=== PATIENT | female | born 1990 | race Caucasian/White ===

== ENCOUNTER 2022-10-07 20:31 | Emergency (ER) | payer BC, SELFPAY ==
[2022-10-07 20:37] VITALS: BP 140/90; PULSE 86; RESP 18; TEMP 36.7; O2SAT 99; BMI 27.5
--- NOTE | 2022-10-07 20:55 | ED_ITS ---
HPI - General Adult General Chief complaint: Chest Pain Stated complaint: Chest Pain, shortness of breath, right arm pain Time Seen by Provider: 10/07/22 20:46 History of Present Illness HPI narrative: This 32-year-old female comes in reporting some right upper arm discomfort over the past week her so. She now has some discomfort in the lateral aspect of her right chest. This is reproduced by taking a deep breath. She does not report any nausea, vomiting, lightheadedness, shortness of breath, or diaphoresis. She does feel a little bit of neck stiffness. She does not report any injury event or strenuous activity to bring on symptoms. 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 Related Data Previous Rx's Medication Instructions Recorded methylprednisolone 4 mg tablets in See Rx Instructions PO .COMPLEX 10/07/22 a dose pack (Medrol (Radhames)) #21 ea Allergies Allergy/AdvReac Type Severity Reaction Status Date / Time No Known Drug Allergies Allergy Verified 10/07/22 20:39 Review of Systems Status of ROS: Reports: 10 or more systems reviewed and unremarkable except as noted in History and below Narrative: Constitutional: No fevers, no weight gain or loss. Eyes: No discharge. No vision changes. HENT: No congestion, no sore throat, no ear pain. Cardiovascular: No palpitations. Chest: Discomfort on the axillary region and inferiorly along the chest wall. This pain is reproducible when taking a deep breath. Respiratory: No shortness of breath, no wheezes, no cough. Gastrointestinal: No abdominal pain, no vomiting, no diarrhea. Genitourinary: No dysuria, no hematuria. Musculoskeletal: Normal range of motion. Skin: No rashes, no pruritis. Neurological: No dizziness, weakness, sensory change, speech change. Endo/Heme/Allergies: No bruising or bleeding. No polydipsia. Pysch: no suicidality, no anxiety, no insomnia. All other systems reviewed and are negative. Exam Narrative: Exam Narrative: Constitutional: Well-developed, well-nourished, no acute distress. HEENT: Normocephalic, atraumatic. Neck: Normal range of motion. Nontender. Supple. Heart: Regular. No murmurs. Normal rate. Intact distal pulses. Lungs: Clear to auscultation. No wheezes, rhonchi, or rales. Chest: Reproducible Discomfort in the lateral aspect of the chest on the right side. Some reproducible discomfort in the upper anterior right chest wall. Abdomen: Normal bowel sounds. Nontender. No rebound tenderness. Genitalia: Deferred. Back: No midline tenderness. Normal range of motion. Extremities: Normal range of motion. No injury. Skin: Intact. No rash. Warm. No erythema or pallor. Neurologic: No altered sensation. No weakness. Alert and oriented. Spurling's test is mildly positive when extending her head and rotating to the right she does have some discomfort and twinges extending down her foot right forearm. Psychiatric: No suicidality. No anxiety or depression. No insomnia. Nursing notes and vitals signs are reviewed. Const: Vital Signs, click to edit/add: Vital Signs - 24 hr 10/07/22 20:37 Temperature 98.1 F Pulse Rate [Right Pulse Oximeter] 86 Respiratory Rate 18 Blood Pressure [Ri ght Upper Arm] 140/90 H Pulse Oximetry 99 Oxygen Delivery Me thod Room Air Course Vital Signs Vital signs: Initial Vital Signs Temperature 98.1 F 10/07/22 20:37 Temperature Source Temporal Artery Scan 10/07/22 20:37 Pulse Rate 86 10/07/22 20:37 Respiratory Rate 18 10/07/22 20:37 Blood Pressure 140/90 H 10/07/22 20:37 Blood Pressure Mean 106 10/07/22 20:37 Blood Pressure Position Sitting 10/07/22 20:37 Pulse Oximetry 99 10/07/22 20:37 Oxygen Delivery Method 10/07/22 20:37 Vital Signs Temperature 98.1 F 10/07/22 20:37 Pulse Rate 86 10/07/22 20:37 Respiratory Rate 18 10/07/22 20:37 Blood Pressure 140/90 H 10/07/22 20:37 Pulse Oximetry 99 10/07/22 20:37 Oxygen Delivery Method 10/07/22 20:37 Temperature 98.1 F 10/07/22 20:37 Pulse Rate 86 10/07/22 20:37 Respiratory Rate 18 10/07/22 20:37 Blood Pressure 140/90 H 10/07/22 20:37 Pulse Oximetry 99 10/07/22 20:37 Oxygen Delivery Method 10/07/22 20:37 Medical Decision Making MDM Narrative Medical decision making narrative: This patient comes in with symptoms as described above. These are reproducible symptoms when taking a deep breath or when doing certain maneuvers. EKG shows normal sinus rhythm. She is not showing any signs or symptoms suspicious for a intrathoracic cause. Her reproducible symptoms are suggestive of chest wall pain. She may also have some nerve impingement with symptoms radiating down her right arm at times. She is okay to be discharged home. She did receive a prescription for Toradol and Medrol Dosepak. ECG Data Attestation: I personally reviewed and interpreted this ECG as follows: Interpretation: Normal sinus rhythm. Rate is 73 beats per minute. There are no ST or T-wave abnormalities. Discharge Plan Discharge Clinical Impression: Acute chest wall pain Patient Disposition: Home, Self-Care Condition: Stable Additional Instructions: Take medication as prescribed and needed. Activity as tolerated. Follow up with MD or return if worsening. Prescriptions: New methylprednisolone [Medrol (Radhames)] 4 mg tablets,dose pack See Rx Instructions .ROUTE .COMPLEX Qty: 21 0RF Rx Instructions: orally per package directions Stand Alone Forms: [employer] Info Instructions
[2022-10-07 21:24] LABS: PCR FLU A Negative PCR FLU A (Negative); PCR FLU B Negative PCR FLU B (Negative); PCR RSV Negative PCR RSV (Negative)
[2022-10-07 21:32] LABS: SARS PCR* POSITIVE SARS-CoV-2 (Negative)
== END 2022-10-07 21:16 | disposition home or self-care (01) ==
LOC: ED 21:08
PROVIDERS: Emergency Provider Emergency Medicine Emergency Medical Services
DX: R07.89 Other chest pain (principal)
CPT/HCPCS: 87502; 87634; 87635; 93005; 99284

== ENCOUNTER 2024-06-21 07:11 | Outpatient (CLI) | payer OTHER, BC, SELFPAY ==
--- NOTE | 2024-06-21 07:15 | CRLHL7_ITS ---
For Patients: As a result of the Cures Act, medical imaging exams and procedure reports are released immediately into your electronic medical record. You may view this report before your referring provider. If you have questions, please contact your health care provider. INDICATION: First trimester scan, establish dates. COMPARISON: None. TECHNIQUE: Real-time ayala-scale imaging of the pelvis was performed. FINDINGS: Sonographic imaging demonstrates a single living intrauterine gestation. The embryo demonstrates a regular cardiac rate measuring 163 beats per minute. The embryo`s crown-rump length measurement of 1.4 cm corresponds to a gestational age of 7 weeks 5 days with a sonographic due date of 02/02/2025. There is a normal-appearing yolk sac. There are no gross abnormalities noted within the embryo at this early state of development. The gestational sac has a normal appearance. There is no evidence of a perigestational hemorrhage. The amount of fluid within the sac appears appropriate for gestational age. The cervix is closed. The myometrium appears normal. The ovaries are of normal size. Corpus luteal cyst left ovary. There are no suspicious fluid collections noted in the cul-de-sac. IMPRESSION: Normal first trimester OB ultrasound exam. Gestational age calculated at 7 weeks 5 days with a sonographic due date of 02/02/2025. Dictated by Reuben Car MD @ 06/21/2024 12:27:05 PM (Electronically Signed)
== END 2024-06-21 07:12 | disposition home or self-care (01) ==
PROVIDERS: Visit Provider Physician Assistant
DX: Z34.91 Encounter for supervision of normal pregnancy, unspecified, first trimester (principal); Z3A.01 Less than 8 weeks gestation of pregnancy
CPT/HCPCS: 76817

== ENCOUNTER 2024-06-21 08:15 | Outpatient (CLI) | payer OTHER, BC, SELFPAY ==
[2024-06-21 12:43] LABS: Chlamydia DNA Amplified* NOT DETECTED (No Detected); GC DNA Amplified* NOT DETECTED (No Detected)
[2024-06-23 06:37] LABS: HPV Source Cervical; HPV, High Risk by TMA Not Detected
[2024-07-05 17:30] LABS: Pap Test Reviewed by Path Done
== END 2024-06-21 08:16 | disposition home or self-care (01) ==
PROVIDERS: Visit Provider Physician Assistant
DX: Z34.91 Encounter for supervision of normal pregnancy, unspecified, first trimester (principal); Z3A.09 9 weeks gestation of pregnancy; Z12.4 Encounter for screening for malignant neoplasm of cervix
CPT/HCPCS: 86592; 86703; 86704; 86706; 86762; 86787; 86803; 86850; 86900; 86901; 87086; 87340; 87491; 87591; 87624; 87625; 88141; 88142

== ENCOUNTER 2024-09-20 13:48 | Outpatient (CLI) | payer OTHER, BC, SELFPAY | END 2024-09-20 13:49 | disposition home or self-care (01) | LOC: US 13:48 | PROVIDERS: Visit Provider Obstetrics & Gynecology | DX: Z34.92 Encounter for supervision of normal pregnancy, unspecified, second trimester (principal); Z3A.22 22 weeks gestation of pregnancy | CPT/HCPCS: 76805 ==

== ENCOUNTER 2024-11-08 10:07 | Outpatient (CLI) | payer OTHER, BC, SELFPAY ==
--- NOTE | 2024-11-08 10:15 | CRLHL7_ITS ---
For Patients: As a result of the Century Cures Act, medical imaging exams and procedure reports are released immediately into your electronic medical record. You may view this report before your referring provider. If you have questions, please contact your health care provider. OB ULTRASOUND BPP FOLLOW-UP LIMITED, 11/08/2024 CLINICAL HISTORY: Marginal cord insertion. TECHNIQUE: Real time ayala scale imaging of the fetus was performed transabdominally. COMPARISON: 09/20/2024, 06/21/2024. FINDINGS: GESTATION: Single. DELVIN by US: 02/02/2025. GA: 27 weeks 5 days. CERVIX: Not visualized. POSITIONING: Vertex. AMNIOTIC FLUID: 6.4 cm SDP. PLACENTA: Technique: TA. Placenta Position: Posterior. DOPPLERS: Heart Rate: 154 bpm. BIOMETRY: BPD: 7.7 cm, 30 weeks 5 days. >97% HC: 27.8 cm, 30 weeks 3 days. 93% AC: 25.9 cm, 30 weeks 0 days. 95% FL: 5.2 cm, 39 weeks 2 days. 39% FL/AC Ratio: 20.2% HC/AC Ratio: 1.1 EFW: 1389 grams. 3 lb 1 oz. Age by this US: 29 weeks 5 days. DELVIN by this US: 01/19/2025. Percentile by DELVIN: 93.5% IMPRESSION: 1. Sonographic gestational age 29 weeks 5 days and sonographic due date 01/19/2025. Sonographic age is two weeks ahead of the clinical age. 2. Estimated weight 94th percentile. Abdominal circumference 95th percentile. Biparietal diameter greater than 97th percentile. 3. Bilateral renal pelviectasis measuring 3.4 mm on the right and 4.5 mm on the left. Follow-up lateral in the third trimester recommended. Reuben Car M.D. Diagnostic Radiologist [email or web address] Transcribed: 9:45 am DW/Dictated by: Reuben Car MD @ 11/09/2024 8:32:00 AM (Electronically Signed)
== END 2024-11-08 10:08 | disposition home or self-care (01) ==
LOC: US 10:07
PROVIDERS: Visit Provider Obstetrics & Gynecology
DX: O43.192 Other malformation of placenta, second trimester (principal); Z3A.27 27 weeks gestation of pregnancy
CPT/HCPCS: 76816

== ENCOUNTER 2024-11-08 11:07 | Outpatient (CLI) | payer OTHER, BC, SELFPAY | END 2024-11-08 11:08 | disposition home or self-care (01) | LOC: NFLDREF 11:09 | PROVIDERS: Visit Provider Obstetrics & Gynecology | DX: Z34.83 Encounter for supervision of other normal pregnancy, third trimester (principal) | CPT/HCPCS: 86592 ==

== ENCOUNTER 2024-11-11 15:58 | Outpatient (CLI) | payer OTHER, BC, SELFPAY ==
[2024-11-11 16:18] VITALS: RESP 16; TEMP 36.8
[2024-11-11 16:19] VITALS: PULSE 108; O2SAT 95
[2024-11-11 16:20] VITALS: BP 121/70; PULSE 92
[2024-11-11 16:36] LABS: Appearance Urine Clear (Clear); Bilirubin Urine Negative (Negative); Blood Urine Negative (Negative); Color Urine Yellow (Yellow); Glucose Urine Negative (Negative); Ketones Urine 4+ (Negative); Leukocyte Esterase Urine Negative (Negative); Nitrite Urine Negative (Negative); Protein Urine Negative (Negative); Specific Gravity Urine 1.015 (1.000-1.030); Urobilinogen Urine 0.2 (0.2-1.0); pH Urine 5.5 (5.0-8.5)
--- NOTE | 2024-11-11 17:20 | P.OBLDTN_ITS ---
OB - Triage/Final Diagnosis Visit Information Time Seen by Provider: 17:20 Date Seen: 11/11/24 Date of evaluation: 11/11/24 Narrative: The patient is a 6 year old 4 para 2009 at 28 1/7 weeks gestation by early ultrasound, who presents with concerns about vaginal bleeding and decreased movement. SHe also has been noticing urinary frequency, which she attributes to the baby pushing on her bladder. She states that she was at a birthday constitution party with her daughter, and they both went to use the toilet. Afterwards, she noticed a small clot of blood in the toilet. The next time she voided, she had a small amount of bloody discharge on the toilet tissue when she wiped. She and her did have sexual intercourse this morning. She denies abdominal or pelvic pain, except for some mild cramping in the low abdomen that she developed on the way in to the hospital. Denies dysuria or vulvovaginal itching or irritation. He fetus is now moving normally. Evaluation Laboratory results: Laboratory Tests 11/11/24 Range/Units 16:22 Urine Color Yellow (Yellow) Urine Appearance Clear (Clear) Urine pH 5.5 (5.0-8.5) Ur Specific [place] 1.015 (1.000-1.030) Urine Protein Negative (Negative) Urine Glucose (UA) Negative (Negative) Urine Ketones 4+ A (Negative) Urine Blood Negative (Negative) Urine Nitrite Negative (Negative) Urine Bilirubin Negative (Negative) Urine Urobilinogen 0.2 (0.2-1.0) Ur Leukocyte Esterase Negative (Negative) Vital signs: Vital Signs - 24 hr 11/11/24 16:18 11/11/24 16:19 11/11/24 16:20 Temperature 98.3 F Pulse Rate 92 Respiratory Rate 16 Blood Pressure 121/70 Pulse Oximetry 95 Comments: General appearance: Alert, cooperative white female in no acute distress. Abdomen: Soft, gravid, nontender. : Sterile speculum examination performed. Cervix visualized, no lesions noted, visually closed. No blood or fluid within the vaginal vault. Fetus (Single) Heart Rate Baseline: 125 Water Technician Variability: Moderate (6-25) Monitor Accelerations: Present Monitor Decelerations: None Final Diagnosis (1) Postcoital bleeding: Status: Acute
--- NOTE | 2024-11-11 17:31 | PC.OBNST ---
NST Note NST Note Start: 11/11/24 16:02 Freq: ONCE Status: Active Protocol: Document 11/11/24 17:26 CUDDYH (Rec: 11/11/24 17:31 CUDDYH [id number]) NST Note 4 Para (# of births) 2 EDC 02/02/25 Gestational Age In Weeks & Days 28 Weeks & 1 Days Patient Presented with Complaint(s) of Vaginal bleeding Reactive Yes Appropriate for Gestational Age Yes RN Bettina Cheng RN Date 11/11/24 Reactive Yes Appropriate for Gestational Age Yes ROWENA Chaudhari RN Date 11/11/24 OB NST charge Yes Complete NST Note via Write Note Yes The provider's electronic signature indicates the NST is reactive/appropriate for gestational age. *Note to provider: If an addendum is required, open the patient's chart and click on the note under the Nurse/Allied Health tab.
== END 2024-11-11 17:26 | disposition home or self-care (01) ==
LOC: OB OUT 16:00 → OB 16:01
PROVIDERS: Visit Provider Obstetrics & Gynecology
DX: O46.93 Antepartum hemorrhage, unspecified, third trimester (principal); Z3A.28 28 weeks gestation of pregnancy
CPT/HCPCS: 59025; 81003; 87086; G0463

== ENCOUNTER 2024-11-22 08:35 | Outpatient (CLI) | payer OTHER, BC, SELFPAY | END 2024-11-22 08:36 | disposition home or self-care (01) | LOC: NFLDREF 11-27 05:41 | PROVIDERS: Visit Provider Obstetrics & Gynecology | DX: O99.810 Abnormal glucose complicating pregnancy (principal) | CPT/HCPCS: 82951; 82952 ==

== ENCOUNTER 2024-11-30 21:17 | Outpatient (CLI) | payer OTHER, BC, SELFPAY ==
[2024-11-30 21:33] VITALS: BP 100/50; PULSE 109; PULSE 112; O2SAT 92
[2024-11-30 21:41] VITALS: RESP 16; TEMP 36.7
[2024-11-30 21:51] VITALS: BP 112/63; PULSE 95
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
== END 2024-11-30 21:56 | disposition home or self-care (01) ==
LOC: OB OUT 21:17 → OB 21:17
PROVIDERS: Visit Provider Obstetrics & Gynecology
DX: O24.419 Gestational diabetes mellitus in pregnancy, unspecified control (principal); Z3A.30 30 weeks gestation of pregnancy
CPT/HCPCS: 59025; G0463

== ENCOUNTER 2024-12-03 07:15 | Outpatient (CLI) | payer OTHER, BC, SELFPAY ==
--- NOTE | 2024-12-03 07:15 | CRLHL7_ITS ---
For Patients: As a result of the Century Cures Act, medical imaging exams and procedure reports are released immediately into your electronic medical record. You may view this report before your referring provider. If you have questions, please contact your health care provider. OB ULTRASOUND LIMITED FOLLOWUP, 12/03/2024 CLINICAL HISTORY: Marginal cord insertion. COMPARISON: 09/20/2024, 11/08/2024. TECHNIQUE: Real time ayala scale imaging of the fetus was performed transabdominal. FINDINGS: DELVIN by LMP/US: 02/02/2025. GA: 31 weeks 2 days. SURGERY: None. CERVIX: Not visualized. POSITIONING: Vertex. AMNIOTIC FLUID: 4.9 cm SDP. PLACENTA: TA. Placenta Position: Posterior. DOPPLERS: Heart Rate: 139 bpm. BIOMETRY: BPD: 8.5 cm, 34 weeks 1 day. >97% HC: 31.0 cm, 34 weeks 4 days. 92% AC: 28.1 cm, 32 weeks 1 day. 73% FL: 6.0 cm, 31 weeks 2 days. 37% FL/AC Ratio: 21.39% HC/AC Ratio: 1.10. EFW: 1950 grams, 4 lb 5 oz. Age by this US: 33 weeks 0 days. DELVIN by this US: 01/21/2025. Percentile by DELVIN: 73% IMPRESSION: 1. Sonographic gestational age 33 weeks 0 days and sonographic due date 01/21/2025. Sonographic age is 12 days ahead of the clinical age. 2. Estimated weight 73rd percentile. Abdominal circumference 73rd percentile. Biparietal diameter greater than 97th percentile. Reuben Car M.D. Diagnostic Radiologist [email or web address] Transcribed: 9:31 am DW/Dictated by: Reuben Car MD @ 12/03/2024 7:49:00 AM (Electronically Signed)
== END 2024-12-03 07:16 | disposition home or self-care (01) ==
LOC: US 07:16
PROVIDERS: Visit Provider Obstetrics & Gynecology
DX: O43.193 Other malformation of placenta, third trimester (principal); O36.63X0 Maternal care for excessive fetal growth, third trimester, not applicable or unspecified; Z3A.31 31 weeks gestation of pregnancy
CPT/HCPCS: 76816

== ENCOUNTER 2024-12-17 14:25 | Observation (INO) | payer OTHER, BC, SELFPAY ==
[2024-12-17] VITALS (11 sets, daily range): BP systolic 107–115; BP diastolic 54–73; PULSE 84–102; TEMP 25.5–36.9; O2SAT 91–97
[2024-12-17 11:42] LABS: Basophils Absolute Auto 0.03 K/uL (0.00-0.30); Basophils Percent Auto 0.3 % (0.0-3.0); Eosinophils Absolute Auto 0.19 K/uL (0.00-0.50); Eosinophils Percent Auto 2.1 % (0.0-7.0); Hematocrit 33.7 % (33.0-51.0); Hemoglobin* 11.8 gm/dL (12.0-16.0); Immature Granulocytes Abs Auto 0.04 K/uL (0.00-0.30); Immature Granulocytes Pct Auto 0.4 %; Lymphocytes Absolute Auto 1.91 K/uL (0.90-2.90); Mean Corpuscular HGB Conc 35 gm/dL (32-36); Mean Corpuscular Hemoglobin 31 pg (26-34); Mean Corpuscular Volume 89 fL (80-100); Monocytes Percent Auto 6.9 % (0.0-11.0); Neutrophils Percent Auto 69.3 % (42.0-72.0); Platelet Count* 241 K/uL (140-440); RDW Coefficient of Variation % 13.2 % (11.5-15.5); Red Blood Count 3.81 m/uL (4.00-5.20)
[2024-12-17 11:46] LABS: Slide Review Reflex No
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
[2024-12-17 15:35] LABS: INR 0.96 (0.91-1.10); Partial Thromboplastin Time* 28 Seconds (23-33); Prothrombin Time 13.6 Seconds
[2024-12-17 15:36] LABS: Fibrinogen* 478 mg/dL (200-450)
[2024-12-17] MEDS: ACETAMINOPHEN 500 MG TABLET 1000 MG PO ×2 (17:12→22:47)
[2024-12-17] MEDS: LACTATED RINGERS 500 ML 500 ML IV (19:57)
[2024-12-18 05:40] VITALS: BP 112/70; PULSE 88; TEMP 36.7
[2024-12-18] MEDS: ACETAMINOPHEN 500 MG TABLET 1000 MG PO (05:43)
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
[2024-12-18 09:16] VITALS: BP 118/63; PULSE 85; TEMP 36.4
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
== END 2024-12-18 09:26 | disposition home or self-care (01) ==
LOC: OB OUT 12-18 14:00 → OB 12-18 14:00
PROVIDERS: Admitting Provider Obstetrics & Gynecology; Visit Provider Obstetrics & Gynecology
DX: O47.03 False labor before 37 completed weeks of gestation, third trimester (principal); Z3A.33 33 weeks gestation of pregnancy; V40.5XXA Car driver injured in collision with pedestrian or animal in traffic accident, initial encounter; Y92.410 Unspecified street and highway as the place of occurrence of the external cause
CPT/HCPCS: 36415; 59025; 76815; 85025; 85384; 85460; 85610; 85730; 96360; 96361; G0463; A9270; G0378; J7120

== ENCOUNTER 2024-12-24 10:25 | Outpatient (CLI) | payer OTHER, BC, SELFPAY ==
--- NOTE | 2024-12-24 10:45 | CRLHL7_ITS ---
For Patients: As a result of the Century Cures Act, medical imaging exams and procedure reports are released immediately into your electronic medical record. You may view this report before your referring provider. If you have questions, please contact your health care provider. OB ULTRASOUND FOLLOWUP LIMITED, 12/24/2024 CLINICAL HISTORY: GDM, marginal cord insertion. COMPARISON: 09/20/2024, 11/08/2024, 12/03/2024. TECHNIQUE: Real time ayala scale imaging of the fetus was performed transabdominally. FINDINGS: DELVIN by US: 02/02/2025. GA: 34 weeks 2 days. GESTATION: Single. CERVIX: Not visualized. POSITIONING: Vertex. AMNIOTIC FLUID: 28.8 cm MAX. 8.4 cm SDP. PLACENTA: Technique: TA. Placenta Position: Posterior. DOPPLERS: Heart Rate: 129 bpm. BIOMETRY: BDP: 9.3 cm, 37 weeks 4 days. >97% HC: 31.8 cm, 35 weeks 6 days. 54% AC: 33.2 cm, 37 weeks 1 day. >97% FL: 6.7 cm, 34 weeks 2 days. 39% FL/AC Ratio: 20.02% PEREZ/AC Ratio: 0.96. EFW: 2909 grams, 6 lb 7 oz. Age by this US: 36 weeks 2 days. DELVIN by this US: 01/19/2025. Percentile by DELVIN: 94% IMPRESSION: 1. Sonographic gestational age 36 weeks 2 days and sonographic due date 01/19/2025. Sonographic age is 2 weeks ahead of the clinical age. 2. Estimated weight 94th percentile. Abdominal circumference 97th percentile. Reuben Car M.D. Diagnostic Radiologist [email or web address] Transcribed: 12:56 pm DW/Dictated by: Reuben Car MD @ 12/24/2024 11:26:00 AM (Electronically Signed)
== END 2024-12-24 10:26 | disposition home or self-care (01) ==
LOC: US 10:25
PROVIDERS: Visit Provider Obstetrics & Gynecology
DX: O24.419 Gestational diabetes mellitus in pregnancy, unspecified control (principal); O43.193 Other malformation of placenta, third trimester; O36.63X0 Maternal care for excessive fetal growth, third trimester, not applicable or unspecified; Z3A.36 36 weeks gestation of pregnancy
CPT/HCPCS: 76816

== ENCOUNTER 2025-01-03 14:08 | Outpatient (CLI) | payer OTHER, BC, SELFPAY ==
--- NOTE | 2025-01-03 14:00 | CRLHL7_ITS ---
For Patients: As a result of the Century Cures Act, medical imaging exams and procedure reports are released immediately into your electronic medical record. You may view this report before your referring provider. If you have questions, please contact your health care provider. OBSTETRICAL ULTRASOUND ??? LIMITED, 01/03/2025 INDICATION: Gestational diabetes mellitus. CLINICAL HISTORY: DELVIN by US: 02/02/2025 Gestational Age: 35 weeks 5 days PRIOR ULTRASOUND: 12/24/2024 TECHNIQUE: Real-time ayala-scale transabdominal imaging of the fetus was performed. FINDINGS: Fetus: Single Cervix: Not visualized positioning: Vertex Amniotic Fluid: MAX: 27.1 cm 8.8 cm SDP Placenta technique: Transabdominal Placenta position: Posterior heart rate: 131 bpm COMMENTS: Today???s SDP = 8.8, MAX = 27.1 cm. 12/24/2024 SDP = 8.4 cm, MAX = 28.8 cm. IMPRESSION: Amniotic fluid single deepest pocket is 8.8 cm. MAX is 27.1 cm. REUBEN DONNELLY M.D. Diagnostic Radiologist [email or web address] Transcribed: 3:[address]/Dictated by: Reuben Donnelly MD @ 01/03/2025 3:28:00 PM (Electronically Signed)
== END 2025-01-03 14:09 | disposition home or self-care (01) ==
LOC: US 14:09
PROVIDERS: Visit Provider Obstetrics & Gynecology
DX: O24.419 Gestational diabetes mellitus in pregnancy, unspecified control (principal); Z3A.35 35 weeks gestation of pregnancy
CPT/HCPCS: 76815

== ENCOUNTER 2025-01-03 15:46 | Outpatient (CLI) | payer OTHER, BC, SELFPAY ==
[2025-01-04 10:14] LABS: Strep B DNA Probe POSITIVE (Negative)
[2025-01-04 10:27] LABS: Strep B Susceptibility Needed? No
== END 2025-01-03 15:47 | disposition home or self-care (01) ==
LOC: NFLDREF 15:46
PROVIDERS: Visit Provider Obstetrics & Gynecology
DX: Z34.83 Encounter for supervision of other normal pregnancy, third trimester (principal)
CPT/HCPCS: 87081; 87653

== ENCOUNTER 2025-01-10 11:54 | Outpatient (CLI) | payer OTHER, BC, SELFPAY ==
[2025-01-10 12:11] VITALS: BP 129/69; PULSE 117
[2025-01-10 12:13] VITALS: RESP 16; TEMP 36.7
--- NOTE | 2025-01-10 14:03 | PC.OBNST ---
NST Note NST Note Start: 01/10/25 11:59 Freq: ONCE Status: Discharge Protocol: Document 01/10/25 13:16 SHARON (Rec: 01/10/25 14:02 SHARON No Response) NST Note 4 Para (# of births) 2 EDC 02/02/25 Gestational Age In 36 Weeks & 5 Days Weeks & Days High Risk Factors Diabetes - Gestational Diet Controlled Patient Presented Contractions/cramping with Complaint(s) of Reactive Yes Appropriate for Yes Gestational Age ROWENA Kimball RNC Date 01/10/25 Reactive Yes Appropriate for Yes Gestational Age ROWENA Haynes, ROWENA Date 01/10/25 OB NST charge Yes Complete NST Note Yes via Write Note The provider's electronic signature indicates the NST is reactive/appropriate for gestational age. *Note to provider: If an addendum is required, open the patient's chart and click on the note under the Nurse/Allied Health tab.
== END 2025-01-10 13:57 | disposition home or self-care (01) ==
LOC: OB OUT 11:54 → OB 11:55
PROVIDERS: Visit Provider Obstetrics & Gynecology
DX: O24.419 Gestational diabetes mellitus in pregnancy, unspecified control (principal); Z3A.36 36 weeks gestation of pregnancy
CPT/HCPCS: 59025; G0463

== ENCOUNTER 2025-01-16 17:20 | Outpatient (CLI) | payer OTHER, BC, SELFPAY ==
[2025-01-16 18:18] VITALS: BP 116/67; PULSE 100; PULSE 104; TEMP 36.9; O2SAT 94
[2025-01-16 18:48] LABS: Amnisure Rom* Negative
[2025-01-16 19:11] VITALS: PULSE 98; O2SAT 98
[2025-01-16 19:12] LABS: Clue Cells <20% Clue Cells Seen (None Seen); Trichomonas No Trichomonas Seen (None Seen); Yeast No Yeast Seen (None Seen)
--- NOTE | 2025-01-16 20:17 | CRLHL7_ITS ---
For Patients: As a result of the Century Cures Act, medical imaging exams and procedure reports are released immediately into your electronic medical record. You may view this report before your referring provider. If you have questions, please contact your health care provider. INDICATION: Known polyhydramnios. Check fluid levels. TECHNIQUE: Ultrasound OB pelvis transabdominal. Real-time ayala-scale imaging of the fetus was performed without stress testing. COMPARISON: OB pelvic ultrasound 01/03/2025. FINDINGS: heart rate: Regular, 150 bpm. position: Vertex. Placental position: Posterior common visualized transabdominally. Amniotic fluid index 24.1 cm with single deepest pocket 7.7 cm, 2/2. motion 2/2. tone 2/2. breathing movements 2/2. IMPRESSION: Amniotic fluid single deepest pocket 7.7 cm with MAX 24.1 cm. Single viable intrauterine with a biophysical profile 8/8. Dictated by Arslan King MD @ 01/16/2025 10:10:58 PM (Electronically Signed)
--- NOTE | 2025-01-16 23:29 | PC.OBNST ---
NST Note NST Note Start: 01/16/25 17:07 Freq: ONCE Status: Discharge Protocol: Document 01/16/25 21:35 MONCHO (Rec: 01/16/25 23:29 MONCHO No Response) NST Note 4 Para (# of births) 2 EDC 02/02/25 Gestational Age In 37 Weeks & 4 Days Weeks & Days High Risk Factors Diabetes - Gestational Diet Controlled Patient Presented Contractions/cramping,Leaking fluid with Complaint(s) of Reactive Yes Appropriate for Yes Gestational Age ROWENA Ayon RN Date 01/16/25 Reactive Yes Appropriate for Yes Gestational Age ROWENA Douglas RN Date 01/16/25 OB NST charge Yes Complete NST Note Yes via Write Note The provider's electronic signature indicates the NST is reactive/appropriate for gestational age. *Note to provider: If an addendum is required, open the patient's chart and click on the note under the Nurse/Allied Health tab.
== END 2025-01-16 21:37 | disposition home or self-care (01) ==
LOC: OB OUT 17:21 → OB 17:22
PROVIDERS: Obstetrics & Gynecology; Visit Provider Obstetrics & Gynecology
DX: O24.419 Gestational diabetes mellitus in pregnancy, unspecified control (principal); O47.1 False labor at or after 37 completed weeks of gestation; Z3A.37 37 weeks gestation of pregnancy
CPT/HCPCS: 59025; 76819; 84112; 87210; G0463

== ENCOUNTER 2025-01-17 09:30 | Inpatient (IN) | payer OTHER, BC, SELFPAY ==
[2025-01-17] VITALS (99 sets, daily range): BP systolic 96–148; BP diastolic 52–84; PULSE 82–131; TEMP 36.8–36.9; O2SAT 91–100; BMI 32.6
[2025-01-17 09:25] LABS: Amnisure Rom* POSITIVE
--- NOTE | 2025-01-17 09:52 | P.LDBA_ITS ---
Subjective History of Present Illness Time Seen by Provider: 09:52 Date Seen: 01/17/25 Narrative: Ann is being admitted to Labor and Delivery for PROM at 6:30 a.m. on 01/17/2025, clear fluid. She is a 34 year old at 37 weeks and 5 days gestation. Her full history and physical was dictated by Dr. Flory Lucas on 01/10/2025. Please see this for details. She states that she has not had many contractions since her water broke. Baby has been moving normally. She is GBS positive and I reviewed that she will be getting antibiotics every 4 hours while in labor for prophylaxis. She has GDM A1 with excellent blood sugar control. She has had mild polyhydramnios with her last AF I on 01/03/2025 measuring 27.1 cm. The fetus is also suspected to be macrosomic with the last estimated weight of 2909 g = 97% on 12/24/2024. Specific Issues/Plans Partner: Harsh Children: Andrea Jimenez Baby: [place] H&P: NDP on 01/10/2025 # GDM * 1hr gtt: 168 * 3hr gtt: 83/187/165/142 * Referral entered for Diabetes Education and nutrition counseling. Begin q.i.d. blood sugar monitoring. # nonimmune rubella and varicella. Vaccinate # pap 06/21/24: LSIL, -HPV. Repeat Pap #?Hx of elevated blood pressure at the end of her prior - no Dx per pt report or review of delivery record from 2019 - Discussed R/B/A to ASA 81mg given ?history of HTN disorder, patient declined # GBS Positive: ampicillin in labor. #FAS w marginal cord insertion: -Growth US at 28 weeks and 34 weeks. #FAS EFW >97% -growth at 28 weeks: EFW 93.6%, AC 95%tile. SDP 6.35 cm. - 12/24: EFW 2909g at 97%ile, AC >97%ile. MVP 8.4cm, MAX 28.8cm. Cephalic. #Mild polyhydramnios - MVP 8.4, MAX 28.8 - MVP/MAX q2w - Serial growth US ongoing - IOL at 39 weeks #Oral herpes hx - recurrent outbreaks in - plans 36 week suppression, but NO history of genital lesions. Rx placed 12/24. Imaging: * 09/20/2024 FAS - no anomalies, marginal cord insertion into the superior placental edge noted * 11/08/2024 growth ultrasound: EFW 94%, AC 95%. BPD >97%, FL 39%. SDP 6.35 cm. * 12/03/2024 growth US: Vertex presentation, estimated weight 1950 g (73%), BPD>97%, HC 92%, AC 73%, FL 37%, SDP 4.9 cm * 12/24: EFW 2909g at 97%ile, AC >97%ile. MVP 8.4cm, MAX 28.8cm. Cephalic. * 01/03/25: Vtx. SDP 8.8. MAX: 27.1 Vaccinations: COVID: Declines Flu: 06/21/24 Tdap: 11/23/24 RSV: N/A 32 week mental health: [] Last pap: 06/21/24 OB - Problem Based A/P Additional Plan (1) PROM (premature rupture of membranes): Status: Acute Plan 1. Admit to the center. 2. Planning to start Pitocin per labor induction protocol at 12:30 p.m. the patient is not having regular contractions spontaneously by then. 3. Ampicillin for GBS positive status for prophylaxis. 4. Encouraged position changes to promote labor onset. 5. Blood type: A positive 6. The patient is considering an epidural for labor analgesia. OB Exam Physical Exam Vital signs: Temp Pulse BP Pulse Ox 98.5 F 107 H 131/64 96 01/17/25 09:09 01/17/25 09:09 01/17/25 09:09 01/17/25 09:09 Narrative: GENERAL APPEARANCE: Pleasant, , well-groomed woman in no acute distress. VITAL SIGNS: as noted in the patient's EMR. HEAD: Normocephalic, atraumatic. THYROID: no masses, nodularity, tenderness or enlargement. LUNGS: Clear to auscultation bilaterally without wheezes, rales or rhonchi. HEART: Regular rate and rhythm with normal S1 and S2. No gallop, rub or murmur. ABDOMEN: Gravid. Soft, nontender, nondistended, with normal bowels sounds throughout. EFM: Baseline 140 bpm. Moderate variability. Accelerations: present. Decelerations: Absent. Reactive. Category 1. PRESENTATION: Vertex by Justin's maneuvers. SVE per nursin cm/ 50 %/ -3/soft/posterior. [place] score: 5 EXTREMITIES: No cyanosis, clubbing, or edema. No varicosities. NEUROLOGIC: Normal gait and balance. Normal deep tendon reflexes at bilateral patella 2+/2, equal without clonus. PSYCHIATRIC: alert and oriented x3. Normal speech pattern, eye contact and affect. SKIN: Warm, dry, and well perfused. Good turgor. No lesions, nodules or rashes.
[2025-01-17 10:10] LABS: Basophils Absolute Auto 0.03 K/uL (0.00-0.30); Basophils Percent Auto 0.4 % (0.0-3.0); Eosinophils Absolute Auto 0.08 K/uL (0.00-0.50); Eosinophils Percent Auto 1.1 % (0.0-7.0); Hematocrit 32.8 % (33.0-51.0); Hemoglobin* 11.5 gm/dL (12.0-16.0); Immature Granulocytes Abs Auto 0.03 K/uL (0.00-0.30); Immature Granulocytes Pct Auto 0.4 %; Lymphocytes Absolute Auto 1.62 K/uL (0.90-2.90); Lymphocytes Percent Auto 21.5 % (20-44); Mean Corpuscular HGB Conc 35 gm/dL (32-36); Mean Corpuscular Hemoglobin 31 pg (26-34); Mean Corpuscular Volume 89 fL (80-100); Monocytes Percent Auto 7.8 % (0.0-11.0); Neutrophils Absolute Auto 5.18 K/uL (1.7-7.0); Neutrophils Percent Auto 68.8 % (42.0-72.0); Platelet Count* 236 K/uL (140-440); RDW Coefficient of Variation % 13.6 % (11.5-15.5); Red Blood Count 3.67 m/uL (4.00-5.20); White Blood Count* 7.53 K/uL (4.50-11.00)
[2025-01-17 10:20] LABS: Slide Review Reflex No
[2025-01-17] MEDS: AMPICILLIN 2 GM in 0.9 % SODIUM CHLORIDE Mini-bag 100 ML IVPB (10:50)
[2025-01-17] MEDS: LACTATED RINGERS 1000 ML 1,000 ML 125 ML IV ×2 (10:50→15:55)
[2025-01-17] MEDS: OXYTOCIN 30 unit/500 ML in NS 30 UNIT/500 ML BAG IVPB (12:46)
[2025-01-17] MEDS: AMPICILLIN 1 GM in 0.9 % SODIUM CHLORIDE Mini-bag 100 ML IVPB ×2 (14:47→18:43)
[2025-01-17] MEDS: LIDOCAINE 2% (PF) 5 ML VIAL EPIDURAL (16:10)
[2025-01-17] MEDS: fentaNYL 100 MCG/2 ML inj EPIDURAL (16:13)
[2025-01-17] MEDS: ROPIVACAINE 0.2% 100 ml 100 ML 12 MG EPIDURAL (16:15)
--- NOTE | 2025-01-17 16:21 | PM.ANBPRC ---
[facility] Medical History Puerperal endometritis (04/17/20) ?O86.12 - Endometritis following delivery (ICD-10) Surgical History History of vaginal delivery Social History (Updated 06/21/24 @ 10:05 by Dolores Mathis PA-C) Narrative: Occupation: Daycare provider. Marital status: Single. Hinduism/cultural needs: no. Chemical or radiation exposure: no. Pre- tobacco use: no. Pre- alcohol use: no. Current tobacco use: no. Current alcohol use: no. Recreational drug use: no. Dietary restrictions: no. Blood transfusion acceptable in an emergency: yes. PSYCHOSOCIAL HISTORY: History of depression or currently depressed: History of depression. Current or past physical, emotional, or sexual mistreatment: Denies. Problems that will make it hard to make it to appointments: Denies. What is your current living situation?: I presently have a place to live Problems where you live: no known problems In the past 12 months, utilities in danger of being shut off: no In past 12 months, lack of transportation kept you from medical appts, meetings, work, or getting things needed for daily living: no In the past 12 mos, have been you worried that your food would run out before you had money to buy more?: never true In the past 12 mos, the food you bought just didn't last and you didn't have money to buy more?: never true Smoking Status: Never smoker How often does anyone, including family, friends and others, physically hurt you: never How often does anyone, including family, friends and others, insult or talk down to you: never How often does anyone, including family, friends and others, threaten you with harm: never How often does anyone, including family, friends and others, scream or curse at you: never Meds Home Medications and Allergies Home Medications ?Medication ?Instructions ?Recorded ?Confirmed ?Type docosahexaenoic acid 200 mg 200 mg PO QDAY 06/21/24 01/17/25 History capsule ( DHA) calcium carbonate (Tums) 200 mg PO BID PRN 07/16/24 01/17/25 History Blood Glucose Meter #1 ea 11/23/24 01/17/25 Rx Test Strips #100 ea 11/23/24 01/17/25 Rx lancets #100 ea 11/23/24 01/17/25 Rx magnesium 250 mg tablet 250 mg PO QDAY 12/03/24 01/17/25 History acetaminophen 500 mg tablet 1,000 mg PO Q6H PRN 12/24/24 01/17/25 History (Tylenol Extra Strength) cetirizine 10 mg tablet (Zyrtec) 10 mg PO QDAY PRN 12/24/24 01/17/25 History valacyclovir 500 mg tablet 500 mg PO BID #60 tabs 12/24/24 01/17/25 Rx Allergies Allergy/AdvReac Type Severity Reaction Status Date / Time No Known Drug Allergies Allergy Verified 01/17/25 10:15 Results Labs Labs: Laboratory Results - last 24 hr 01/17/25 01/17/25 09:05 10:03 WBC 7.53 RBC 3.67 L Hgb 11.5 L Hct 32.8 L MCV 89 MCH 31 MCHC 35 RDW Coeff of Clarence 13.6 Plt Count 236 Neut % (Auto) 68.8 Lymph % (Auto) 21.5 Mcdonald % (Auto) 7.8 Eos % (Auto) 1.1 Baso % (Auto) 0.4 Neut # (Auto) 5.18 Lymph # (Auto) 1.62 Mcdonald # (Auto) 0.60 Eos # (Auto) 0.08 Baso # (Auto) 0.03 Abs Immat Gran (auto) 0.03 Imm/Tot Granulo (auto) 0.4 Membrane Rupture POSITIVE Blood Type A Positive Antibody Screen NEGATIVE Vital Signs Vital Signs: Last Vital Signs Temp 98.4 F 01/17/25 13:13 Pulse 112 H 01/17/25 16:20 BP 137/70 01/17/25 16:20 Pulse Ox 99 01/17/25 16:20 Weight: 88.949 kg Height: 165.1 cm Anesthesia Procedures Epidural Insertion Patient Location: OB Start Time: 15:30 Stop Time: 16:30 Start Date: 01/17/25 Stop Date: 01/17/25 Reason for Block: procedure for pain Patient Position: sitting Performed By: Kandace Salinas Preanesthetic Checklist: IV checked, risks and benefits discussed, monitors and equipment checked, pre-op evaluation, timeout performed and anesthesia consent Prep: chlorhexidine gluconate Monitoring: blood pressure monitoring, continuous pulse oximetry and heart rate Approach: midline Vertebral Space: lumbar (1-5) Epidural Technique: GOGO saline Needle Type: Tuohy needle Injection Technique: continuous catheter (continuous catheter) Needle gauge: 17 Needle Length (cm): 10 cm Needle Insertion Depth (cm): 7 Catheter Gauge: 19 Catheter Type: multi-orifice Catheter at skin depth (cm): 15 Test Dose Result: negative and lidocaine 1.5% with epinephrine 1 to 200,000
[2025-01-17] MEDS: PHENYLEPHRINE 100 MCG/ML SYRINGE IVP ×2 (16:49→16:57)
[2025-01-17] MEDS: ePHEDrine sulfate 5 MG/ML inj 10 MG IVP (17:00)
--- NOTE | 2025-01-17 17:58 | P.OBPN_ITS ---
Subjective Time Seen by Provider: 16:45 Date Seen: 01/17/25 Narrative: Subjective: Patient is comfortable w/ epidural. Pitocin: 6 milliunits/minute. The patient received an epidural within the last hour and started having problems with hypotension and repetitive early/late decelerations to the 90s. The early/late decelerations essentially resolved once the blood pressure was under good control. I obtained verbal consent to place an IUPC and FSE to more closely assess the decelerations in FHR to characterize early/late. There are still a few variable decelerations not occurring with every contraction, lasting less than 15 seconds to about 90. Vital signs: Per electronic medical record. EFM: Baseline 125bpm, positive accelerations, repetitive variable/early decelerations, [moderate] variability, [reactive]. Category []. [place]: Contractions every 2-5 minutes. SVE: 5cm/90%/0. Assessment: 34-year-old 4 para to at 37 weeks 5 days gestation undergoing augmentation of labor after PROM at 6:30Am today. Plan: 1. Continue Pitocin per labor induction protocol. 2. Continue epidural for labor analgesia. 3. Continue to monitor heart rate closely. Objective Vital Signs: Last Vital Signs Temp 98.4 F 01/17/25 16:48 Pulse 101 H 01/17/25 17:57 BP 127/77 01/17/25 17:57 Pulse Ox 98 01/17/25 17:55
--- NOTE | 2025-01-17 19:14 | W.PM.OBVAGDE ---
OB Procedure Vag Delivery Mother Details Mother Details: Ann is a 34 year-old, 4, Para 2, admitted on 01/17/25 at 37.5 weeks gestation. : 4 Para: 3 Weeks Gestation: 37.5 Admission Date: 01/17/25 Additional Details Amniotic Membrane Status: SROM Amniotic Membrane Rupture Date: 01/17/25 Amniotic Membrane Rupture Time: 06:30 Amniotic Membrane Fluid Description: Clear Analgesia/Anesthesia Type: Epidural Waterbirth: No Pitcoin: Yes Intrapartal Events: Labor Augmentation Induction Method: per pitocin protocol Labor Onset: 16:00 Complete: 18:54 Pushin:57 Heart: heart tones during second stage were continuously monitored with external US, Category I FHT. Delivery Details Delivery Date: 01/17/25 Delivery Time: 19:04 Route of delivery: Gender: Male Viability: Alive; Heart Rate Present Position at Delivery: OA Delivery Details: 34?y.o?at 37.5 weeks.? Ann was admitted with PROM today at 0630. She is a patient of the OB providers and managed by Dr. Shin, I was asked to attend the delivery as she was in surgery with a different patient. ? ? She became complete at 1854.??She pushed in low guzmán positions effectively.???She delivered quickly over the space of three contractions. ? Spontaneous vaginal delivery at 1904 of?a viable?male infant.??Delivered in vertex OA position.??Shoulders delivered easily.? Spontaneous cry noted.??Infant placed on maternal abdomen.??Cord?was clamped and cut after a 2 minute delay.??There was a tight nuchal cord which was not able to be reduced, body was somersaulted through and delivered without difficulty. ? Shoulder dystocia: no? Nuchal cord: yes times one? Meconium stained?fluid: no? Water : no? ? ? 8 at 1 minute and 9 at 5 minutes.? Weight is pending. ? Placenta delivered spontaneously and?complete?at 190 with a?3 vessel?cord.?There was a marginal cord insertion.? Bleeding controlled with fundal massage and?pitocin?for AMTSL.? ? Lacerations:? intact ? Bleeding?post delivery?was: minimal. ?The fundus was firm to palpation.? Blood loss: 250?mL.? Blood loss measurement type: QBL? ? ? Sponge,?lap?and needles counts are correct.? Mother and were stable after delivery.? 1 Minute Interval Total Score: 8 5 Minute Interval Total Score: 9 Additional Details Shoulder Dystocia: No Placenta Delivery Time: 19:09 Placental Delivery Description: Spontaneous Procedure Done: Global Blood Loss: 250 Laceration: None Blood Loss Measurement Type: QBL Bakri Used: No Sponge/Need Count Correct: Yes Cord Vessel Description: 3 Vessels, Nuchal Cord and Delivered through Event Summary Status: Mother and were stable after delivery. Disposition: floor
[2025-01-18 00:34] VITALS: BP 124/75; PULSE 90; RESP 16; O2SAT 96
[2025-01-18] MEDS: ACETAMINOPHEN 500 MG TABLET 1000 MG PO ×3 (00:42→16:46)
[2025-01-18 05:46] VITALS: BP 97/62; PULSE 98; RESP 16; TEMP 36.4; O2SAT 97
[2025-01-18 08:23] VITALS: BP 112/69; PULSE 98; RESP 16; TEMP 36.4; O2SAT 97
[2025-01-18] MEDS: DOCUSATE SODIUM 100 MG CAPSULE PO (09:53)
--- NOTE | 2025-01-18 12:08 | PM.ANPOST ---
Post Anesthesia Note Post Anesthesia Note Patient seen: Inpatient Respiratory Status: adequate Cardiovascular Status: adequate Mental Status: baseline Pain: adequate Temp: baseline Anesthetic awareness: N/A Complications: none Follow care: none
--- NOTE | 2025-01-18 12:23 | P.OBPN_ITS ---
OB - PN:Subj Subjective Date Seen: 01/18/25 Patient comments OB post-: no complaints, pain well controlled, tolerating diet and flatus present [place] status: and doing well [place] feeding status: exclusively Narrative: Ann feels well.? Her pain is well controlled with current medications.? She has no new complaints.? Urinary output is adequate and she is voiding without difficulty.? Has a good appetite, is tolerating a general diet, is passing flatus, and has not had a bowel movement.? Has small amount of rubra lochia.? She is ambulating well.?She is and feels it is going pretty good so far. OB - PN: Obj Exam Physical Exam: Vital signs: Temp Pulse Resp BP Pulse Ox O2 Del Method 97.6 F 98 16 112/69 97 Room Air 01/18/25 08:23 01/18/25 08:23 01/18/25 08:23 01/18/25 08:23 01/18/25 08:23 01/18/25 08:23 Narrative: GENERAL APPEARANCE:? normal affect, alert, no distress? MOOD:? appropriate? CHEST:? clear to auscultation and percussion? HEART:? regular rate and rhythm? ABDOMEN:? soft, non-tender the uterine fundus is U/2 and is appropriate for the stage of recovery.? PERINEUM:? mild edema of the perineum, there is a intact perineum that is healing well.? EXTREMITIES:? normal and no edema? OB - PN: Obj Data Labs Labs: Laboratory Results - last 24 hr 01/18/25 05:56 Hgb 11.0 L OB - PN: A/P Delivery Assessment and Plan (1) Gestational diabetes: Status: Acute (2) Anxiety: Status: Chronic (3) care following vaginal delivery: Status: Acute (4) Lactating mother: Status: Acute Plan day: 1 Plan: routine care Comments: Anticipate discharge home tomorrow. Encouraged 2hr GTT before discharge.
[2025-01-18 13:00] VITALS: BP 117/77; PULSE 97; RESP 16; TEMP 36.4; O2SAT 95
[2025-01-18 15:09] LABS: Rapid Plasma Reagin (RPR) Non Reactive (Non Reactive)
[2025-01-18 16:40] VITALS: BP 113/69; PULSE 97; RESP 16; O2SAT 96
[2025-01-19] MEDS: IBUPROFEN 600 MG TABLET PO (02:02)
[2025-01-19 02:09] VITALS: BP 115/74; PULSE 74; RESP 20; TEMP 36.5; O2SAT 98
[2025-01-19 07:14] LABS: Glucose Fasting 77 mg/dl (70-95)
[2025-01-19 07:51] VITALS: BP 114/72; PULSE 88; RESP 16; TEMP 36.6; O2SAT 97
[2025-01-19 09:07] LABS: Glucose 2 Hour 123 mg/dl (70-155)
[2025-01-19] MEDS: DOCUSATE SODIUM 100 MG CAPSULE PO (09:28)
--- NOTE | 2025-01-19 10:06 | P.DS_ITS ---
DS: Providers Provider Time Seen by Provider: 09:20 Date Seen: 01/19/25 Date of admission: 01/17/25 09:30 Primary care physician: Not a Local Provider Admitting Clinician: Flory Shin MD Attending Physician on discharge: Flory Shin MD Date of Discharge: 01/19/25 DS: Diagnosis Discharge Diagnosis (1) Lactating mother: Status: Acute (2) care following vaginal delivery: Status: Acute (3) Gestational diabetes: Status: Acute (4) Anxiety: Status: Chronic Exam Narrative: Exam Narrative: Physical exam: General: No acute distress Psych: Alert and oriented x4, full affect HEENT: Normocephalic, atraumatic Heart: Regular rate and rhythm, no murmur rub or gallop Lungs: Clear to auscultation bilaterally Abdomen: Normoactive bowel sounds, soft, no tenderness, rebound, or guarding Lower extremities: No edema or erythema Pelvic exam: Deferred. Reports scant lochia. Const: Vital Signs, click to edit/add: Vital Signs - 24 hr 01/18/25 13:00 01/18/25 16:40 01/19/25 02:09 Temperature 97.6 F 97.7 F Pulse Rate [Pulse Oximeter] 97 97 74 Respiratory Rate 16 16 20 Blood Pressure [Le ft Arm] Blood Pressure [Ri ght Arm] 117/77 113/69 115/74 Pulse Oximetry 95 96 98 Oxygen Delivery Me thod Room Air Room Air Room Air 01/19/25 07:51 Temperature 97.9 F Pulse Rate [Pulse Oximeter] 88 Respiratory Rate 16 Blood Pressure [Le ft Arm] 114/72 Blood Pressure [Ri ght Arm] Pulse Oximetry 97 Oxygen Delivery Me thod Room Air OB - DS: Summary Hospital Course Hospital Course: The patient is a 34 year old G 4 P 3003 at 37.5 weeks gestation that was admitted to the Center on 01/17/25 for PROM. She had an uncomplicated vaginal delivery. She delivered a viable male infant. She is breast feeding. the patient has done well. Overnight patient had no complaints. Her pain is well controlled on oral pain medications. She is tolerating a regular diet. She has passed flatus. She is ambulating without difficulty. Lochia is scant. She is urinating without morrison. Patient denies chest pain, SOB, n/v, headache, RUQ pain, vision changes, dizziness. 2 hour GTT result: 77, 123. Passed. Patient is stable and appropriate for discharge on day 2. [place] Infant Gender: Male Time Spent with Patient Time attestation: Total time spent providing and/or coordinating discharge services: Discharge Plan Discharge Disposition: Home, Self-Care Date of Admission: 01/17/25 09:30 Attending Provider on Discharge: Rochelle Fernando Primary Care Provider: Provider,Not a Local Condition: Stable Anticipated Discharge Date/Time: 01/19/25 10:03 Discharge Medications: New Dermoplast (with menthol) 20-0.5 % Aerosol 1 spray topical QID PRNQty: 85 0RF acetaminophen 500 mg Tablet 1,000 mg PO Q6H PRN30 Days Qty: 30 0RF ibuprofen 600 mg Tablet 600 mg PO Q6H PRN30 Days Qty: 30 0RF Lanolin (HPA) 100 % Cream 1 applic topical Q1H PRNQty: 21 0RF Continued calcium carbonate [Tums] 200 mg calcium (500 mg) tablet,chewable 200 mg PO BID PRN magnesium 250 mg tablet 250 mg PO QDAY DHA 200 mg capsule 200 mg PO QDAY acetaminophen [Tylenol Extra Strength] 500 mg tablet 1,000 mg PO Q6H PRN cetirizine [Zyrtec] 10 mg tablet 10 mg PO QDAY PRN valacyclovir 500 mg tablet 500 mg PO BID Qty: 60 0RF Discontinued (DME) Test Strips Misc See Rx Instructions .MEDSUPPLY Qty: 100 3RF Rx Instructions: Test blood sugar 4 times daily. (DME) lancets Misc See Rx Instructions .MEDSUPPLY Qty: 100 3RF Rx Instructions: Test blood sugar 4 times daily. (DME) Blood Glucose Meter Misc See Rx Instructions .MEDSUPPLY Qty: 1 0RF Rx Instructions: As directed Discharge Orders: Discharge Order (Routine); Ordered 01/19/25 Ordered By: Rochelle Fernando Patient Education: OB Over the Counter Medication Information, OB Vaginal/Breast Feeding Activity Level: No Restrictions Discharge Diet: Regular Follow Up Appointments: Provider,Not a Local [Primary Care Provider, Family Practice] Forms: MyHealth Info Instructions
== END 2025-01-19 12:00 | disposition home or self-care (01) | DRG 806 ==
LOC: OB OUT 09:30 → OB 09:30
PROVIDERS: Advanced Practice Midwife; Admitting Provider Obstetrics & Gynecology; Visit Provider Obstetrics & Gynecology
DX: O42.02 Full-term premature rupture of membranes, onset of labor within 24 hours of rupture (principal); B00.89 Other herpesviral infection; Z37.0 Single live birth; O98.52 Other viral diseases complicating childbirth; O99.824 Streptococcus B carrier state complicating childbirth; O24.420 Gestational diabetes mellitus in childbirth, diet controlled; O40.3XX0 Polyhydramnios, third trimester, not applicable or unspecified; O76 Abnormality in fetal heart rate and rhythm complicating labor and delivery; O43.193 Other malformation of placenta, third trimester; O99.344 Other mental disorders complicating childbirth; F41.9 Anxiety disorder, unspecified; I95.89 Other hypotension; Z28.39 Other underimmunization status; Z3A.37 37 weeks gestation of pregnancy
CPT/HCPCS: 01967; 36415; 82947; 82950; 84112; 85018; 85025; 86592; 86850; 86900; 86901; 88307; A9270; J0290; J2795; J3010; J7120

== ENCOUNTER 2025-03-01 09:58 | Outpatient (CLI) | payer OTHER, BC, SELFPAY ==
[2025-03-03 02:12] LABS: HPV Source Cervix
[2025-03-11 14:37] LABS: Pap Test Reviewed by Path Done
== END 2025-03-01 09:59 | disposition home or self-care (01) ==
PROVIDERS: Visit Provider Physician Assistant
DX: Z30.430 Encounter for insertion of intrauterine contraceptive device (principal)
CPT/HCPCS: 87624; 87625; 88141; 88142